=== PATIENT | female | born 1980 | race Caucasian/White ===

== ENCOUNTER 2016-03-21 18:58 | Emergency (ER) | payer MEDICAID, OTHER ==
[~2016-03-21] VITALS: Ht 162.6 cm; Wt 93.2 kg
[~2016-03-21 18:58] MED LIST: ALBU8.5H2 INHALATION; BENZ-12 PO
[2016-03-21 19:01] VITALS: BP 135/85; PULSE 84; RESP 16; O2SAT 98
--- NOTE | 2016-03-21 19:28 | ED.REPORT ---
HPI-Rash / Abscess Date of Service Mar 21, 2016 ED Provider: Haider Olivier MD Pt is a 35 y/o female with a history of asthma and migraine headaches who reports to the ED complaining of an itchy painful rash on the back of her legs onset 2 days ago . Pt reports that the rash feels burning, itching, and is very painful. The rash is only on the backs of her legs. Pt took oral Benadryl to treat symptoms with no relief. Pt had a similar rash previously which resulted from a cat allergy. Pt also c/o of a migraine headache and an ongoing cough. She describes her headache as persistent and is similar to previous migraines. Pt is currently on prednisone 20 mg twice a day for 4 days and Azithromycin for her upper respiratory infection. Patient also has not had access to Advair, which she typically takes for her asthma. Nursing Notes Stated Complaint: POSSIBLE HIVES/HEADACHE Chief Complaint: Skin Rash/Abscess Nursing Notes Reviewed: Yes ([employer], meds not reconciled) Allergies: Coded Allergies: No Known Allergies (Unverified , 03/14/16) Scheduled Albuterol HFA (Proair HFA) 8.5 Gm Hfa.aer.ad 2 PUFFS INHALATION Q4H Fluticasone/Salmeterol (Advair 100-50 Diskus) 60 Puffs/Inh Disk 1 PUFFS IH BID Ranitidine (Ranitidine) 150 Mg Capsule 150 MG PO BID Scheduled PRN Benzonatate (Tessalon Perle) 100 Mg Capsule 100 MG PO TID PRN PRN For Cough Benzonatate (Tessalon Perle) 100 Mg Capsule 100 MG PO TID PRN PRN For Cough Hydrocodone-Acetaminophen 5-325 mg (Hydrocodone-Acetaminophen 5-325 mg) 1 Each Tablet 1 TABLET PO Q4H PRN PRN For Pain Promethazine (Promethazine) 25 Mg Tablet 25 MG PO Q4H PRN PRN migraine General Time Seen by MD: 19:26 Chief Complaint Rash Hx Obtained From: Patient Arrived By: Walk-in Onset Occurred: 2 days ago Symptom Duration: Since onset Location: : Lower extremity Severity: Current: Mild Severity: Maximum: Mild Pertinent Negative: Relieved by nothing Recent Healthcare: No recent hospitalization, Recent doctor visit Past Medical History Past Medical History Notes: seen in ED 03/16/16 for migraine Past Medical History Migraines Reports: Asthma Past Surgical History none reported Family History Noncontributory Smoking History Current Every Day Smoker Social History Other Social History: Local resident Ambulatory Status Independent Review of Systems Respiratory: Reports: Non-productive cough, Denies: Shortness of breath Skin: Reports Itching, Reports Rash (back of thighs) Complete sys rev & neg: except as marked. Neurologic: Reports: Headache Physical Exam Initial Vital Signs Vital Signs (First) Date Time Temp Pulse Resp B/P Pulse Ox O2 Delivery O2 Flow Rate FiO2 03/21/16 19:01 36.6 84 16 135/85 98 Room Air Initial VS: Reviewed, Vital signs normal Head / Eyes: Atraumatic, Normocephalic, PERRL ENT: Mucous membranes moist, Conjunctiva normal, No scleral icterus Neck: Supple, Non-tender, Full range of motion Respiratory: Breath sounds normal, Clear to auscultation, No respiratory distress Cardiovascular: Regular rate & rhythm, Heart sounds normal, Intact distal pulses Extremities: Vascular intact, Neuro intact Neurologic: Alert, Oriented, Nonfocal Psychiatric: Mood/affect normal, Behavior normal, Normal thought content General/Constitutional: Awake, Alert Skin: Warm, Dry Color / Condition: Positive: Rash present Rash / Lesion Notes: erythematous raised urticarial rash on back of his thighs. no blisters, vesicles, or bulla. Rash / Lesion Location: Positive: Thigh L, Thigh R Re-Eval/Medical Decision Med Decision/Clinical Course This is a 35-year-old female presents complaining of a red, raised, itchy and burning rash in the back or legs. At times it feels like blisters, although turns out on inspection there are no vesicles or bulla. The patient had been recently treated with a course of Zithromax for respiratory infection, and she has a chronic recurrent migraine. She has no new respiratory symptoms, no angioedema, no audible bronchospasm- although she does expose to be on Advair, and needs a prescription for this, she was told her prescription was faxed in to the pharmacy is told by the pharmacy nothing was sent in. She has had no GI symptoms. She has had prior allergic reactions, and she has been taking some Benadryl to try and help with itching discomfort of this current rash per On exam she appears H's, but otherwise well. She is alert oriented and appropriate with no normal neurologic exam and no focal deficits. She has no red flags on history or exam to suggest the need for acute neuro imaging or LP. She does have a rash in the posterior thighs that is raised, and appears urticarial. It is pruritic. There are no vesicles or bulla. There is no signs of secondary cellulitis. The differential for the urticaria includes an allergic reaction Reaction to Zithromax is in the differential but is not definitive. The patient received appears steroids, Benadryl, Pepcid, and is somewhat improved. She she received IM Phenergan for the migraine. She is improved. Legs also hurt and also she did receive a prepack of hydrocodone to take at home as well. He is being discharged the dose of dexamethasone, continued Benadryl, continue a short course of a H2 elian, and I have written the requested refill for her Advair inhaler. Patient is discharged in improved condition Source of Hx: Old records Re-Evaluation/Progress : Time of Eval: 21:01 Patient Status: Condition improved Re-Evaluation/Progress Note: Patient understands and agrees with the plan to be discharged home. Discharge instructions and follow-up discussed. All questions were addressed. Return to the ED warnings given. Differential Diagnosis: Positive: Urticaria, Negative: AIDS/HIV, Abscess, Anorectal abscess, Eczema, Henoch-Schonlein purpura, Herpes zoster, Herpes zoster/simplex, Hidradenitis suppurativa, Idiopathic thromb purpura, Impetigo, MRSA, Osteomyelitis, Pediculosis (lice), Candelario mt spotted fever, Scarlet fever Counseled Regarding: Diagnosis, Need for follow-up, When/why to return to ED Discharge & Departure Impression: Primary Impression: Migraine Migraine type: unspecified Status migrainosus presence: without status migrainosus Intractability: not intractable Qualified Code: G43.909 - Migraine, unspecified, not intractable, without status migrainosus Additional Impression: Urticaria Disposition: Home Discharge Condition All VS Reviewed: Yes Condition: Stable Additional Instructions: 1. Continue the benadryl (diphenhydramine) 25mg 1-2 tabs up to every 4 hours as needed for itching/rash. 2. Take dexamethasone (empty rest of syringe into juice and drink) tomorrow. 3. Take ranitidine 150mg twice a day for 3 days to help with itching/rash. 4. For migraines you can add promethazine 25mg 1 tab up to every 4 hours. NOTE: This medicine can cause mild drowsiness. 5. Keep your appointment with your doctor Referrals: [facility] Payal Attestation Portion of this note were transcribed by Sushma Murillo and Darrell Weber. I, Dr. Olivier, personally performed the history, physcial exam, and medical decision- making: I reviewed and confirmed the accuracy for the information in the transcribed note. Signed by: payal Joel, 03/21/162199 Signed by: Payal Dick, 03/21/2016 2208 copies to: [facility] Haider Olivier MD Mar 21, 2016 19:28 DARRELL WEBER Mar 21, 2016 19:48 Sushma Murillo Mar 21, 2016 21:01
[2016-03-21] MEDS ORDERED: Dexamethasone 20 mg/2 mL Oral Solution PO ONE (19:45)
[2016-03-21] MEDS ORDERED: Promethazine 25 mg/mL Inj IM ONE (19:45)
[2016-03-21] MEDS ORDERED: PROM25TA14 PO (20:40)
[2016-03-21] MEDS ORDERED: RANI150C4 PO (20:40)
[2016-03-21] MEDS ORDERED: _HYDROcodone/APAP 5-325 mg Tablet PO PRN (21:05)
[2016-03-21] MEDS ORDERED: ADV100INH IH (21:06)
[2016-03-21] MEDS ORDERED: HYDR-4003 PO (21:06)
== END 2016-03-22 00:13 | disposition home or self-care (01) ==
LOC: SED 18:58
DX: G43.909 Migraine, unspecified, not intractable, without status migrainosus (principal); L50.9 Urticaria, unspecified; J45.909 Unspecified asthma, uncomplicated; F17.200 Nicotine dependence, unspecified, uncomplicated
CPT/HCPCS: 96372; 99284; J1200

== ENCOUNTER 2016-06-21 06:16 | Observation (INO) | payer MEDICAID, OTHER ==
[~2016-06-21] VITALS: Ht 160 cm; Wt 100.0 kg
[2016-06-21] VITALS (9 sets, daily range): BP systolic 127–181; BP diastolic 60–102; PULSE 41–75; RESP 12–36; O2SAT 93–98
[~2016-06-21 06:16] MED LIST changes: +ADV100INH IH; +HYDR-4003 PO; +PROM25TA14 PO; +RANI150C4 PO
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
[2016-06-21] MEDS ORDERED: 0.9% Sodium Chloride 1,000 ML IV ONE ×2 (06:38→09:20)
[2016-06-21] MEDS ORDERED: Ketorolac 15 mg/mL Inj IVPUSH ONE (06:40)
[2016-06-21] MEDS ORDERED: Ondansetron 2 mg/mL 2 mL Inj IVPUSH PRN ×4 (06:40→15:15)
[2016-06-21 07:02] LABS: BASOPHILS % (AUTO) 0.3 % (0-3); MONOCYTES % (AUTO) 8.7 % (4-12); Mean Corpuscular Hemoglobin 29.2 pg (27.0-35.0); Mean Corpuscular Volume 88.5 fL (81-100); NEUTROPHILS % (AUTO) 72.7 % (40-74); Platelet Count 266 bil/L (150-400)
[2016-06-21 07:27] LABS: Magnesium 1.9 mg/dL (1.6-2.6)
--- NOTE | 2016-06-21 08:01 | DRSVH ---
PROCEDURE: X-RAY CHEST ONE VIEW, PORTABLE ([id number]) INDICATIONS: dyspnea TECHNIQUE: One view of the chest was acquired. COMPARISON: 03/14/2016 FINDINGS: Surgical changes and devices: None. Lungs and pleura: No pleural effusions or pneumothorax. Lungs are clear except for slight blurring of pulmonary vessels at the right lung base, possibly atelectasis or mild infiltrate.. Mediastinum: Mediastinal contours appear normal. Heart size is normal. Bones and chest wall: No suspicious bony lesions. Overlying soft tissues appear unremarkable. IMPRESSION: Possible early pneumonitis right lower lobe for clinical correlation. Discrepant from the preliminary reading Dictated by: Josef Colon M.D. on 06/21/2016 at 7:57 Approved by: Josef Colon M.D. on 06/21/2016 at 8:00
--- NOTE | 2016-06-21 08:19 | DRSVH ---
PROCEDURE: CT ABDOMEN AND PELVIS WITHOUT CONTRAST ([id number]) INDICATIONS: RLQ pain TECHNIQUE: Noncontrast 5 mm thick sections acquired from the diaphragms to the symphysis. 5 mm coronal and sagi ttal reformats were then performed. For radiation dose reduction, the following was used: automated exposure control, adjustment of mA and/or kV according to patient size. COMPARISON: [facility], CR, XR CHEST 2VW, 03/14/2016, 13:47. [facility], CR , XR CHEST 1VW (PORTABLE), 06/21/2016, 6:39. FINDINGS: Image quality: Excellent. ABDOMEN: Lung bases: There is a trace amount of right pleural effusion. There is mild right middle lobe groun dglass infiltrate. Heart size is normal. Solid organs: Liver is normal in size. Spleen is not enlarged. A small amount of fluid is seen arou nd liver. There is mild bladder wall thickening. There are no opaque gallstones. A small amount of pe richolecystic fluid is present. Fluid is also seen in the lesser sac and narrow pancreatic head. Oliver creas is normal in contours. No adrenal nodules. Kidneys are normal in size, without hydronephrosis or nephrolithiasis. Peritoneum and bowel: Appendix is normal. Unenhanced bowel loops demonstrate normal wall thickness a nd caliber. There is a small to moderate amount of free fluid. No free air. Nodes and vessels: No retroperitoneal or mesenteric adenopathy by size criteria. Aorta and inferior vena cava are normal in caliber. Miscellaneous: No ventral hernias. There is mild body wall edema. PELVIS: Genitourinary: Bladder is contracted. Miscellaneous: No inguinal hernias or adenopathy. Bones: No suspicious bony lesions. No vertebral body compression fractures. IMPRESSION: 1. Normal appendix. There is no CT findings to explain right lower quadrant pain. 2. Gallbladder wall is mildly thickened. No radiopaque gallstones. There is a small amount of pericho lecystic fluid and fluid. Cannot rule out early acute cholecystitis. Ultrasound may be helpful for fu rther evaluation. 3. A small to moderate amount of free fluid. 4. Mild splenomegaly. 5. Trace right pleural effusion and mild groundglass infiltrate in the right middle lobe. Recommend c linical correlation for developing pneumonia. The result was discussed with Dr. Madrid in ER prior to dictation. Dictated by: Luis Manuel Zhang M.D. on 06/21/2016 at 7:59 Approved by: Luis Manuel Zhang M.D. on 06/21/2016 at 8:17
[2016-06-21] MEDS ORDERED: levoFLOXacin Inj 750 MG in IV Premix 1 EACH IV ONE (09:20)
[2016-06-21] MEDS ORDERED: metroNIDAZOLE Inj 500 MG in IV Premix 1 EACH IV ONE (09:20)
--- NOTE | 2016-06-21 09:44 | DRSVH ---
PROCEDURE: US ABDOMEN, LIMITED ([id number]) INDICATIONS: RUQ pain TECHNIQUE: Real-time focused scanning was performed of the abdomen, with image documentation. COMPARISON: None. FINDINGS: The gallbladder wall appears of edematous, thickened to up to 11 mm. There is tenderness d uring sonographic palpation but no stones are seen within the gallbladder lumen. The common bile kiran t is relatively poorly seen due to overlying bowel gas, and measures an estimated 6 mm. IMPRESSION: Gallbladder wall thickening without gallstones identified, with the gallbladder wall thic kness up to 11 mm. Tenderness during palpation directly over the gallbladder is present. No biliary distention is found. Dictated by: Timothy Ricardo M.D. on 06/21/2016 at 9:42 Approved by: Timothy Ricardo M.D. on 06/21/2016 at 9:43
[2016-06-21] MEDS ORDERED: GABA-500 PO (10:12)
[2016-06-21] MEDS ORDERED: OXCA300T2 PO (10:12)
[2016-06-21] MEDS ORDERED: UMEC1DIS INHALATION (10:12)
[2016-06-21] MEDS ORDERED: 0.9% Sodium Chloride 1,000 ML IV SCH (11:13)
[2016-06-21] MEDS ORDERED: Alum-Mag Hydrox-Simeth 30 mL Suspension PO PRN (11:15)
--- NOTE | 2016-06-21 11:17 | NUR ---
Admit nurse: Admit completed, med rec completed per pt interview. Allergies updated.
--- NOTE | 2016-06-21 11:55 | NUR ---
Admit to [facility] Pt arrived in [facility] at 1125 from ED. Pt alert and oriented. Complaining that her ID cards were not returned to her in ED. States her pain is tolerable and rates it at 6/10. PIV patent and intact. All personal possession with pt. Explained nonsmoking policy to pt and also reinforced rules about not leaving the unit. Pt does not recall the last time she had food or drink: "Maybe the day before yesterday?" (Friday). VSS. No nausea. No vomiting. Care continues.
[2016-06-21] MEDS ORDERED: HYDROmorphone 1 mg/mL Inj IVPUSH PRN ×2 (13:45→15:15)
--- NOTE | 2016-06-21 14:07 | NUR ---
Pt off unit Pt to O.R. at 1405 hrs. PIV saline locked.
[2016-06-21] MEDS ORDERED: Lactated Ringer's 1,000 ML IV ONE ×2 (14:30→15:11)
--- NOTE | 2016-06-21 14:40 | HP ---
[address] [address] HISTORY AND PHYSICAL PATIENT: MILAN ALANIZ : 1980 MR#: [id number] ADMIT: 06/21/2016 JOB ID: [id number] CORRECTED REPORT: DATE OF SERVICE: 06/21/2016 PRESENT ILLNESS: The patient is seen in consultation at the request of Dr. Donny Hogan of the emergency department regarding further evaluation and management of abdominal pain. HISTORY OF PRESENT ILLNESS: The patient is a 35-year-old, obese woman who presented to the emergency department today with eight or nine days of right flank and right upper quadrant abdominal pain. She tells me that she has been experiencing episodic right upper quadrant abdominal pain for about five years now. She had previously been told that her gallbladder was the culprit. About eight days ago, she started developing recurrent right upper quadrant abdominal pain. She associates this with particularly spicy foods but sometimes fatty foods. Yesterday, the pain became quite intense prompting her to come to the emergency department today. She complains of nausea and has vomited. She has also been feeling intermittently cold and hot. In the emergency department, she was found to have leukocytosis of 11.3. Her LFTs were relatively unremarkable. A CT scan of the abdomen and pelvis was obtained without contrast and showed mild thickening of the gallbladder wall with some pericholecystic fluid. There was also some free fluid in the belly as well as mild splenomegaly and trace right pleural effusion. She went on to get an ultrasound which I reviewed. This shows some gallbladder wall thickening up to 11 mm. However, no stones were identified. She did have a positive sonographic Toscano sign. The patient complains of ongoing pain. PAST MEDICAL HISTORY: 1. Bipolar. 2. Agoraphobia. 3. PTSD. 4. Anxiety. 5. Sciatica. PAST SURGICAL HISTORY: 1. Tonsils and adenoids. 2. Pilonidal excision. 3. Ear tubes. MEDICATIONS: Current medications reviewed. ALLERGIES: Reviewed. FAMILY HISTORY: Family history is significant for multiple family members who have had their gallbladder removed. REVIEW OF SYSTEMS: Full review of systems is obtained as per the HPI, otherwise negative. SOCIAL HISTORY: She lives in [place]. she is attending college currently. She smokes about one pack of cigarettes per week. She denies any alcohol or illicit drugs. PHYSICAL EXAMINATION: She has been afebrile since admission. She has most recently had a temperature of 36.7 degrees, heart rate 41 beats per minute. Blood pressure 133/67, satting 95% on room air with a respiratory rate of 20 breaths per minute. In general, she appears mildly uncomfortable in no acute distress. Cardiovascular: She has a regular rate and rhythm. No appreciated murmurs, rubs, gallops. Pulmonary: Lungs are clear to auscultation. Cardiovascular: She has no carotid bruit. Neck: She has no thyromegaly. Lymph: She has no cervical lymphadenopathy. GI: Her abdomen is obese. She has exquisite tenderness in the right upper quadrant. Extremities: She has trace pitting edema. Skin is warm without rash. Neuro is grossly intact. Psych is pleasant and appropriate. LABORATORIES: Her white blood cell count this morning was 11.3, hematocrit was 36. Platelet count was 266. Her creatinine was 0.67. Lactic acid was 0.9. Bilirubin was 0.3. Lipase was 44. IMAGING: CT scan and ultrasound are personally reviewed and as per the HPI. ASSESSMENT AND PLAN: This is a 35-year-old female with right flank and upper quadrant abdominal pain with sonographic evidence of possible acalculous cholecystitis. I discussed the diagnosis of cholecystitis with the patient. It is quite rare to see acalculous cholecystitis in a nonhospitalized or institutionalized patient. However, it is hard to argue with her history as well as the elevated white blood cell count and the sonographic findings of a thickened wall and tenderness of the gallbladder. I discussed the possibility that removing the gallbladder may not resolve her pain. However, I do not think it is unreasonable to proceed with cholecystectomy. The patient would like to proceed and this will be done as soon as the operating room is available. Corrected by SUNNY 06/26/16 at 9:00am Report type.
[2016-06-21] MEDS ORDERED: Bupivacaine-MPF 0.25%/EPI 30 mL Inj INJ ONE (15:05)
[2016-06-21] MEDS ORDERED: Lactated Ringer's 1,000 ML IV SCH (15:11)
[2016-06-21] MEDS ORDERED: Lactated Ringer's 500 ML IV PRN (15:11)
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
[2016-06-21] MEDS ORDERED: Atropine 0.4 mg/mL Inj IVPUSH PRN (15:15)
[2016-06-21] MEDS ORDERED: MetoCLOpramide 5 mg/mL 2 mL Inj IVPUSH PRN (15:15)
[2016-06-21] MEDS ORDERED: fentaNYL-PF 50 mCg/mL 2 mL Inj IVPUSH PRN (15:15)
[2016-06-21] MEDS ORDERED: Labetalol 5 mg/mL 4 mL Inj IV PRN (15:15)
[2016-06-21] MEDS ORDERED: Phenylephrine 10,000 mCg/mL Inj IVPUSH PRN (15:15)
[2016-06-21] MEDS ORDERED: EPHEDrine Sulfate 50 mg/mL Inj IVPUSH PRN (15:15)
[2016-06-21] MEDS ORDERED: Dexamethasone 4 mg/mL Inj IVPUSH PRN (15:15)
[2016-06-21] MEDS ORDERED: Albuterol-Ipratropium 3 mL Inhalation Solution NEB PRN (15:15)
--- NOTE | 2016-06-21 16:10 | PCM.DISURG ---
Surgical Discharge Instruction Date of Service Jun 21, 2016 Dates of Hospitalization Date of Hospital Admission Jun 21, 2016 at 10:12 Providers Admitting Physician: Adan Gutierrez MD [facility]ending [facility]: Adan Gutierrez MD Discharge Diagnosis Discharge Diagnosis Cholecystitis Diet Discharge Diet: No restrictions Activity Discharge Activity-General: Be up and about, Balance rest and activity, No driving while taking narcotic Dressing and Incisional Care Dressing Care: Allow Steri Stripes to fall off, Remove outer dressing after 24 hrs Hygiene: May shower, NO bathtub, hot tub or whirlpool Follow Up Plan Follow Up Plan follow up with surgical PA in 2-4 weeks Call your provider for: Fever, Chills, Increasing abdominal pain, Nausea, Vomiting Adan Gutierrez MD Jun 21, 2016 16:10
--- NOTE | 2016-06-21 16:21 | PCM.ANEP2 ---
Post Anesthesia Evaluation ASA/CMS Post Anesthesia Date of Service: Jun 21, 2016 VS in Patient's Normal Range?: Yes Resp Stable; Airway Patent?: Yes CV Function & Hydration Stable: Yes Mental Status Recovered?: Yes Pain control Satisfactory?: Yes N/V Control Satisfactory?: Yes Holden Granados MD Jun 21, 2016 16:21
--- NOTE | 2016-06-21 16:21 | PCM.ANEP1 ---
Post Anesthesia Phase 1 PACU Phase 1 Assessment Date of Service: Jun 21, 2016 Vital Signs Vital Signs Date Time Temp Pulse Resp B/P Pulse Ox O2 Delivery O2 Flow Rate FiO2 06/21/16 11:34 36.7 41 20 133/67 95 Room Air Anesthetic Administered: GA Level of Alertness: Awake, talking WONG's with Equal Strength: Yes Pain: No Nausea or Vomiting: No Oxygen Delivery: Simple Mask Lungs: Normal Air Movement Holden Granados MD Jun 21, 2016 16:21
--- NOTE | 2016-06-21 16:55 | OP ---
[address] [address] OPERATIVE REPORT PATIENT: MILAN ALANIZ : 1980 MR#: [id number] ADMIT: 06/21/2016 JOB ID: [id number] DATE OF SURGERY: 06/21/2016 ANESTHESIA: General. PREOPERATIVE DIAGNOSIS(ES): Acute acalculous cholecystitis. POSTOPERATIVE DIAGNOSIS(ES): Acute acalculous cholecystitis. OPERATIVE PROCEDURE: Laparoscopic cholecystectomy. SURGEON: Adan Gutierrez MD. LASER/ELECTRO OPTICS TECHNICIAN: Nirav Leger PA-C. (The assistant portfolio manager was required for the safe and timely completion of the case). COMPLICATIONS: None. ESTIMATED BLOOD LOSS: 20 mL. CONDITION: Satisfactory. SPECIMEN: Gallbladder. FINDINGS: Clear simple fluid was encountered in the abdomen of unclear etiology. The gallbladder itself was distended and edematous. INDICATIONS/SIGNIFICANT HISTORY: The patient is a 35-year-old female who has been experiencing episodic right upper quadrant and right flank pain for a number of years. She had a particularly bad episode that began several weeks ago and acutely worsened yesterday prompting a visit to the emergency department today. She was found to have a mild leukocytosis as well as sonographic findings suggestive of cholecystitis including wall thickening and positive sonographic Toscano sign. However, no stones were identified. I talked with her and explained that it is unusual to see a presentation of acute acalculous cholecystitis in a patient such as herself, but was willing to perform a cholecystectomy. The patient agreed to move forward. OPERATIVE TECHNIQUE: The patient was taken into the operating room and placed in supine position. General anesthesia was administered. The abdomen was prepped and draped in a standard fashion. A procedural pause was performed. Entry was gained to the abdomen through a supraumbilical incision using a 10 mm Optiview trocar. Pneumoperitoneum was achieved without complication. Local anesthetic was injected, followed by insertion of 5 mm ports in the subxiphoid as well as two in the right upper quadrant. An attempt was made to grasp the gallbladder but it was distended and firm. It was therefore drained using 14-gauge laparoscopic aspiration needle. The gallbladder was then grasped and retracted cephalad. The liver was quite fatty limiting mobility. Dissection was begun to identify the cystic structures. I was able to get the base of the gallbladder off the cystic plate. However, some bleeding was encountered which was controlled with electrocautery. Eventually, I got all but the duct freed up. I did not identify a cystic artery and presumably took it while I was dissecting the gallbladder off the cystic plate. Once the gallbladder was pediclized off the cystic duct, three clips placed on this and it was taken sharply. The remainder of the dissection of the gallbladder off the cystic plate was then completed and the gallbladder placed in an EndoCatch bag. The epigastric port had caused a small laceration in the liver. This was inspected and found to be completely hemostatic. The gallbladder was removed through the umbilical port site, and then the surgical bed was copiously irrigated, and found to be hemostatic. I did not have to dilate the umbilical port site fascia to get the gallbladder out. I was unable to place a finger through the hole and therefore elected not to close it. The lateral ports were then removed under direct visualization followed by release of pneumoperitoneum and removal of the remaining port. Skin was closed using 4-0 Monocryl. FINDINGS: Interestingly, adjacent to the duodenum, in the area of the olive hepatis, there was what appeared to be a lot of edema in the fatty tissue of unclear etiology.
[2016-06-21] MEDS ORDERED: CLOT60CR TP (17:51)
[2016-06-21] MEDS ORDERED: RANI150T11 PO (18:10)
[2016-06-21] MEDS ORDERED: PROM25TA14 PO (18:10)
[2016-06-21] MEDS ORDERED: ETOD200C4 PO (18:10)
[2016-06-21] MEDS: oxyCODONE-Acetamin 5-325 mg Tablet PO PRN ×3 (18:37→22:35)
[2016-06-21] MEDS: Dextrose 5% Lactated Ringer's 1,000 ML IV SCH (18:37)
[2016-06-21] MEDS ORDERED: Albuterol 2.5 mg/3 mL Inhalation Solution NEB PRN (20:00)
[2016-06-21] MEDS ORDERED: OXcarbazepine 300 mg Tablet PO SCH (20:30)
[2016-06-22 00:30] VITALS: BP 151/76; PULSE 41; RESP 19; O2SAT 95
--- NOTE | 2016-06-22 01:50 | NUR ---
Nutritional status Emily. po fluids and food qs w/o c/o nausea.IV changed to SL.VSS yet hypertensive at start of shift.Pt. was very upset at that time r/t missing ID card.Mother at bedside and helpful with pts labile emotions.Calmed down after .5mg IV dilaudid adm.PO analgesia has been eff. for pain control since then.Abd. soft with BT.Passing flatus.Dressings CDI.Sleeping soundly at this time and resting comfortably.Will cont. to monitor.
[2016-06-22] MEDS: Dextrose 5% Lactated Ringer's 1,000 ML IV SCH (03:59)
--- NOTE | 2016-06-22 05:48 | NUR ---
Agitation Pt.ref. offered pain meds,states they are making her more anxious.Also ref. am labs and removed her IV.Mom at bedside and helpful.Will cont. to monitor.Home soon.
[2016-06-22] MEDS ORDERED: HYDR-4003 PO (07:43)
[2016-06-22] MEDS ORDERED: Glycopyrrolate 0.2 MG/ML 1mL Inj ONE (08:07)
[2016-06-22] MEDS ORDERED: HYDROmorphone 2 mg/mL Inj ONE (08:07)
[2016-06-22] MEDS ORDERED: fentaNYL-PF 50 mCg/mL 2 mL Inj ONE (08:07)
[2016-06-22] MEDS ORDERED: Propofol 10,000 mCg/mL 20 mL Inj ONE (08:07)
[2016-06-22] MEDS ORDERED: Neostigmine 1 mg/mL 10 mL Inj ONE (08:07)
[2016-06-22] MEDS ORDERED: Lidocaine PF 1% 30 mL Inj ONE (08:07)
[2016-06-22] MEDS ORDERED: Ondansetron 2 mg/mL 2 mL Inj ONE (08:07)
[2016-06-22] MEDS ORDERED: Dexamethasone 4 mg/mL Inj ONE (08:07)
--- NOTE | 2016-06-22 09:19 | NUR ---
Discharge discharge instructions reviewed with patient and her mother. medications reviewed and follow-up information given. I recommended calling surgery office on Mon/Tues to set up appointment. I offered to assist patient to car. patient declined, stating, "i can walk out myself." patient discharged at 0805hrs.
--- NOTE | 2016-06-24 09:28 | PCM.DC.SUR ---
Discharge Summary Date of Service: Date of Hospital Admission: Jun 21, 2016 at 10:12 Date of Operation(s): 06/21/2016 Date of Discharge: 06/22/2016 Diagnosis at Time of Discharge Primary diagnosis: Acute acalculous cholecystitis Other chronic conditions: 1. Bipolar disorder. 2. Agoraphobia. 3. PTSD. 4. Anxiety. 5. Sciatica. 6. Daily cigarette smoker Problems: Operation Laparoscopic cholecystectomy Brief History and Physical: The patient is a 35-year-old, obese woman who presented to the emergency department with eight or nine days of right flank and right upper quadrant abdominal pain. She stated that she had been experiencing episodic right upper quadrant abdominal pain for about five years. She had previously been told that her gallbladder was the culprit. About eight days Prior to admission, she started developing recurrent right upper quadrant abdominal pain. She associated that with particularly spicy foods but sometimes fatty foods. The day prior to admission, the pain became quite intense prompting her to come to the emergency department. She complaind of nausea and has vomited. She had also been feeling intermittently cold and hot. In the emergency department, she was found to have leukocytosis of 11.3. Her LFTs were relatively unremarkable. A CT scan of the abdomen and pelvis was obtained without contrast and showed mild thickening of the gallbladder wall with some pericholecystic fluid. There was also some free fluid in the belly as well as mild splenomegaly and trace right pleural effusion. She went on to get an ultrasound. This showed some gallbladder wall thickening up to 11 mm. However, no stones were identified. She did have a positive sonographic Toscano sign. The patient complaind of ongoing pain on admission. Consultants: None Hospital Course: The patient was admitted and underwent the above-mentioned operation without complication. She was stable for discharge the following day. Pathology: Pending Disposition: The patient was discharged to home on her first postsurgical day. Follow-up Plan: She will follow-up in the office with the surgical PA in 2-4 weeks. Albuterol HFA (Proair HFA) 8.5 Gm Hfa.aer.ad 2 PUFFS INHALATION Q4H PRN PRN For Shortness of Breath (Reported) Clotrimazole (Athlete's Foot) 1 % Cream..g. 1 APPLIC TP BID (Reported) Etodolac (Etodolac) 200 Mg Capsule 400 MG PO BIDWM PRN PRN For Pain (Reported) Gabapentin (Gabapentin) 100 Mg Capsule 100-300 MG PO HS (Reported) Hydrocodone-Acetaminophen 5-325 mg (Hydrocodone-Acetaminophen 5-325 mg) 1 Each Tablet 1 TABLET PO Q4H PRN PRN For Pain Oxcarbazepine (Oxcarbazepine) 300 Mg Tablet 300 MG PO TID (Reported) Promethazine (Promethazine) 25 Mg Tablet 25 MG PO Q4H PRN PRN migraine Promethazine (Promethazine) 25 Mg Tablet 25 MG PO TID PRN PRN For Nausea/ Vomiting (Reported) Ranitidine (Zantac) 150 Mg Tablet 150 MG PO BIDWM (Reported) Umeclidinium Brm/Vilanterol Tr (Anoro Ellipta 62.5-25 Mcg INH) 1 Each Disk.w.dev 1 PUFF INHALATION QAM (Reported) copies to: [facility] Raymundo Acosta PA-C Jun 24, 2016 09:28
--- NOTE | 2016-06-25 11:07 | PATH ---
SURGICAL PATHOLOGY Attending Physician:Adan Gutierrez MD CASE STATUS: Signed Out PATIENT NAME: MILAN ALANIZ PID: [id number] : 1980 DATE COLLECTED:06/21/2016 00:00 SPECIMEN: Gallbladder CLINICAL HISTORY: CALCULOUS CHOLECYSTITIS 1). GALLBLADDER FINAL DIAGNOSIS: Gallbladder: Acalculous chronic cholecystitis with focal cholesterolosis. ICD10: K81.1 GROSS DESCRIPTION: The specimen is received in one formalin filled container labeled with the patient's name, sublabeled "gallbladder" and consists of an intact 7.5 x 3.5 x 1.0 CM gallbladder. The serosa is smooth. The wall is 0.2-0.6 CM in thickness. The mucosa is a pink to dark lang in color. The lumen contains a dark red-brown mucoid to friable material and no calculus are noted. 5 maintenance representative sections are submitted in one cassette. 06/22/2016 [facility] ICD-9 CODES: CPT CODES: 1: 58192 Electronically Signed Out Williams Georges MD [facility] [address], [place] [address] Technical component performed at [facility], [facility] [address], [place], [address]
== END 2016-06-22 08:08 | disposition home or self-care (01) ==
LOC: SED 06:16 → OSC 10:12
PROVIDERS: ADMIT General Practice; ATTEND General Practice
DX: K81.1 Chronic cholecystitis (principal); F31.89 Other bipolar disorder; F40.00 Agoraphobia, unspecified; F43.10 Post-traumatic stress disorder, unspecified; F17.210 Nicotine dependence, cigarettes, uncomplicated; F41.9 Anxiety disorder, unspecified; M54.30 Sciatica, unspecified side; J45.909 Unspecified asthma, uncomplicated
CPT/HCPCS: 36415; 47562; 71010; 74176; 76705; 80053; 81025; 83605; 83690; 83735; 85025; 88304; 94799; 96365; 96366; 96368; 99285; G0378; J1100; J1170; J1956; J2250; J2405; J2710; J3010; J3490; J7030; J7120

== ENCOUNTER 2016-06-23 20:26 | Emergency (ER) | payer OTHER ==
[~2016-06-23] VITALS: Ht 160 cm; Wt 100.0 kg
[~2016-06-23 20:26] MED LIST changes: -ADV100INH IH; -BENZ-12 PO; +CLOT60CR TP; +ETOD200C4 PO; +GABA-500 PO; +OXCA300T2 PO; -RANI150C4 PO; +RANI150T11 PO; +UMEC1DIS INHALATION
[2016-06-23 20:33] VITALS: BP 135/83; PULSE 60; RESP 14; O2SAT 97
== END 2016-06-23 21:00 | disposition left against medical advice (07) ==
LOC: SED 20:26
DX: Z53.21 Procedure and treatment not carried out due to patient leaving prior to being seen by health care provider (principal)

== ENCOUNTER 2016-09-11 00:09 | Emergency (ER) | payer OTHER ==
[~2016-09-11] VITALS: Ht 167.6 cm; Wt 118.2 kg
[2016-09-11 00:15] VITALS: BP 148/91; PULSE 79; RESP 23; O2SAT 100
--- NOTE | 2016-09-11 00:26 | ED.REPORT ---
HPI-Psychiatric Illness Date of Service Sep 11, 2016 ED Provider: Dr. Garcia 36 y/o female with a hx of migraines, bipolar 1 and asthma presents to the ED complaining of suicidal ideation, onset today. The pt states she stopped taking her medications a week ago because she states "they are not working". She also states "I feel very hated right now. I don't know what's going on today". When informed she will need to meet with a social media project manager tomorrow morning, she states she wants to go home and sleep. She confirms her safety and agrees to return tomorrow. Nursing Notes Stated Complaint: MENTAL ISSUES Chief Complaint: Psychiatric Complaint Nursing Notes Reviewed: Yes Allergies: Coded Allergies: Fish Containing Products (Verified Allergy, Severe, breathing difficulties , 06/21/16) aspirin (Verified Allergy, Severe, breathing difficulties, vomiting, ) Scheduled Clotrimazole (Athlete's Foot) 1 % Cream..g. 1 APPLIC TP BID Gabapentin (Gabapentin) 100 Mg Capsule 100-300 MG PO HS Oxcarbazepine (Oxcarbazepine) 300 Mg Tablet 300 MG PO TID Ranitidine (Zantac) 150 Mg Tablet 150 MG PO BIDWM Umeclidinium Brm/Vilanterol Tr (Anoro Ellipta 62.5-25 Mcg INH) 1 Each Disk.w.dev 1 PUFF INHALATION QAM Scheduled PRN Albuterol HFA (Proair HFA) 8.5 Gm Hfa.aer.ad 2 PUFFS INHALATION Q4H PRN PRN For Shortness of Breath Etodolac (Etodolac) 200 Mg Capsule 400 MG PO BIDWM PRN PRN For Pain Hydrocodone-Acetaminophen 5-325 mg (Hydrocodone-Acetaminophen 5-325 mg) 1 Each Tablet 1 TABLET PO Q4H PRN PRN For Pain Promethazine (Promethazine) 25 Mg Tablet 25 MG PO Q4H PRN PRN migraine Promethazine (Promethazine) 25 Mg Tablet 25 MG PO TID PRN PRN For Nausea/ Vomiting General Time Seen by MD: 00:25 Chief Complaint Suicidal ideation Hx Obtained From: Patient Arrived By: Walk-in Onset Occurred: 9 - 12 hours ago Symptom Duration: Since onset Severity: Current: No pain currently Severity: Maximum: No pain Recent Healthcare: No recent doctor visit Similar Sx Previous: Yes Risk-Psychiatric Illness Suicide Risk Stratification Suicide Risk Factors - Adult: : Previous attempt RF Statements: Risk factors reviewed Past Medical History Past Medical History Notes: seen in ED 03/16/16 for migraine Past Medical History Migraines Bipolar 1 Reports: Asthma Past Surgical History none reported Family History Noncontributory Smoking History Current Every Day Smoker Social History Other Social History: Local resident Ambulatory Status Independent Review of Systems Psychiatric: Reports: Anxiety, Suicidal ideation Complete sys rev & neg: except as marked. Physical Exam Initial Vital Signs Vital Signs (First) Date Time Temp Pulse Resp B/P Pulse Ox O2 Delivery O2 Flow Rate FiO2 09/11/16 00:15 36.8 79 23 148/91 100 Room Air Initial VS: Reviewed Head / Eyes: Atraumatic, Normocephalic Neck: Supple, Non-tender, Full range of motion Respiratory: Breath sounds normal, Clear to auscultation, No respiratory distress Cardiovascular: Regular rate & rhythm, Heart sounds normal, Intact distal pulses Extremities: Vascular intact, Neuro intact, No swelling, No tenderness Skin: Warm, Dry, No cyanosis General/Constitutional: Awake, Alert, Cooperative Distress / Hydration: Positive: Distress moderate Behavior: Positive: Tearful Appearance / Presentation: Positive: Obese Neurologic: Oriented X3, Speech NL, No motor deficits, No sensory deficits Psychiatric: Not suicidal (at the ED), Not homicidal, No hallucinations Re-Eval/Medical Decision Med Decision/Clinical Course 36-year-old female with bipolar illness, medical noncompliance, and vague suicidality, presents anxious and tearful, but unwilling to remain overnight. She is willing to contract for safety and appears to be sincere desire to return here for social work evaluation in the morning. No indication for detaining her against her will to this point, and with her contract for safety, she is discharged in stable condition Re-Evaluation/Progress : Time of Eval: 00:35 )( Re-Eval Psychiatric: No danger to self, No danger to others Re-Evaluation/Progress Note: Discussed diagnosis and plan to discharge so she can return tomorrow to meet with a social media project manager. Pt understands and agrees with the plan. F/U instructions and RTER warning given. All questions addressed. Counseled Regarding: Diagnosis, Need for follow-up, When/why to return to ED Discharge & Departure Impression: Primary Impression: Depression Depression Type: unspecified Qualified Code: F32.9 - Major depressive disorder, single episode, unspecified Additional Impressions: Bipolar mood disorder Active/Remission status: currently active Current bipolar episode type: depressed Current episode severity: moderate Qualified Code: F31.32 - Bipolar disorder, current episode depressed, moderate Acute situational disturbance )( Condition at Discharge: No danger to self, No danger to others Disposition: Home Discharge Condition All VS Reviewed: Yes Condition: Stable Patient Instructions: Bipolar Disorder (ED), Depression (ED) Additional Instructions: You have agreed to remain safe tonight. Return tomorrow for evaluation by social service after 9 AM. Return here promptly if you are feeling unsafe and unable to honor your commitment to remain safe. Follow-up with your doctor and your counselor. Referrals: [facility] (PCP) Scribe Attestation Portions of this note were transcribed by Carolina Ott. I, , personally performed the history, physical exam and medical decision- making;I reviewed and confirmed the accuracy of the information in the transcribed note. Signed by An Camargo. 09/11/16 00:46 copies to: [facility] Holden Garcia MD Sep 11, 2016 00:26 Carolina Ott Sep 11, 2016 00:32
[2016-09-11] MEDS ORDERED: LORazepam 2 mg Tablet PO ONE (00:35)
[2016-09-11 02:41] VITALS: BP 136/84; PULSE 84; RESP 24; O2SAT 100
== END 2016-09-11 02:40 | disposition home or self-care (01) ==
LOC: SED 00:09
DX: F32.9 Major depressive disorder, single episode, unspecified (principal); F31.32 Bipolar disorder, current episode depressed, moderate; F43.0 Acute stress reaction; J45.909 Unspecified asthma, uncomplicated; F17.200 Nicotine dependence, unspecified, uncomplicated; Z88.6 Allergy status to analgesic agent; Z91.013 Allergy to seafood

== ENCOUNTER 2016-10-06 12:01 | Emergency (ER) | payer OTHER ==
[~2016-10-06] VITALS: Ht 160 cm; Wt 106.8 kg
[2016-10-06 12:01] VITALS: BP 162/107; PULSE 65; RESP 21; O2SAT 98
[2016-10-06] MEDS ORDERED: OLANZapine Zydis ODT 5 mg Tablet PO ONE (13:00)
--- NOTE | 2016-10-06 13:08 | ED.REPORT ---
HPI-General Illness Date of Service Oct 06, 2016 ED Provider: Taisha Ponce MD Patient is a 36 year old female with a hx of Asthma, HTN, endometriosis, depression, bipolar, substance abuse, and previous suicide attempts who presents to the ED s/p calling police and telling them she felt suicidal. She reports that she has had increasing troubles for the past several years due to "a lot of trauma." She reports insomnia for the past several weeks but she slept well last night. She also reports hallucinations for the past few weeks. When asked to explain her symptoms she states "even though he really wasn't here he saved me. It was Ramo, my ex. I never would have this asshole. I want a divorce." She was seen about a month ago for these hallucinations. When asked about her suicidal ideation she states, "it's not like i really think about killing myself its just that when the depression comes it hurts so much and I just don't wanna hurt no more." She does not have a plan. She denies homicidal ideations, recent illness, or any other symptoms. She reports she is supposed to be on Trileptal but has been off of it since June. When asked why she states, "don't they understand I can't sleep all the time. I need to get a job and go to school". She has not been taking an antidepressant. Her last period was last week. Her Psychiatrist is Brandie at [facility]. She has an appointment in 5 days. Nursing Notes Stated Complaint: PSYCHIATRIC Chief Complaint: Psychiatric Complaint Nursing Notes Reviewed: Yes Allergies: Coded Allergies: Fish Containing Products (Verified Allergy, Severe, breathing difficulties , 10/06/16) aspirin (Verified Allergy, Severe, breathing difficulties, vomiting, ) Scheduled Clotrimazole (Athlete's Foot) 1 % Cream..g. 1 APPLIC TP BID Gabapentin (Gabapentin) 100 Mg Capsule 100-300 MG PO HS Olanzapine (Zyprexa) 20 Mg Tablet 20 MG PO HS Oxcarbazepine (Oxcarbazepine) 300 Mg Tablet 300 MG PO TID Ranitidine (Zantac) 150 Mg Tablet 150 MG PO BIDWM Umeclidinium Brm/Vilanterol Tr (Anoro Ellipta 62.5-25 Mcg INH) 1 Each Disk.w.dev 1 PUFF INHALATION QAM Scheduled PRN Albuterol HFA (Proair HFA) 8.5 Gm Hfa.aer.ad 2 PUFFS INHALATION Q4H PRN PRN For Shortness of Breath Etodolac (Etodolac) 200 Mg Capsule 400 MG PO BIDWM PRN PRN For Pain Hydrocodone-Acetaminophen 5-325 mg (Hydrocodone-Acetaminophen 5-325 mg) 1 Each Tablet 1 TABLET PO Q4H PRN PRN For Pain Promethazine (Promethazine) 25 Mg Tablet 25 MG PO Q4H PRN PRN migraine Promethazine (Promethazine) 25 Mg Tablet 25 MG PO TID PRN PRN For Nausea/ Vomiting General Time Seen by MD: 12:43 Chief Complaint Other (suicidal) Hx Obtained From: Patient, Police Arrived By: Police Sudden in Onset?: No Onset Occurred: More than a week ago... (>6 months) Recent Healthcare: Recent doctor visit Similar Sx Previous: Yes Past Medical History Past Medical History Notes: seen in ED 03/16/16 for migraine Past Medical History Migraines agoraphobia Bipolar 1 HTN GERD endometriosis Depression Previous suicide attempt pulmonary cysts Reports: Asthma Past Surgical History none reported Family History Noncontributory Smoking History Current Every Day Smoker Social History "spice" use Drug Use: In recovery, Meth Other Social History: Local resident Ambulatory Status Independent Review of Systems Full Review of Systems Constitutional: Denies: Fever GI: Denies: Abdominal pain, Nausea, Vomiting Psychiatric: Reports: Anxiety, Depression, Hallucinations, auditory, Hallucinations, visual, Insomnia, Suicidal ideation, Denies: Homicidal ideation Complete sys rev & neg: except as marked. Physical Exam Vital Signs Vital Signs Date Time Temp Pulse Resp B/P Pulse Ox O2 Delivery O2 Flow Rate FiO2 10/06/16 18:32 36.9 58 16 148/103 98 Room Air 10/06/16 12:01 36.6 65 21 162/107 98 Room Air Initial VS: Reviewed, Vital signs abnormal Head / Eyes: Atraumatic, Normocephalic, PERRL Neck: Supple, Non-tender, Full range of motion Respiratory: Breath sounds normal, Clear to auscultation, No respiratory distress Cardiovascular: Regular rate & rhythm, Heart sounds normal, Intact distal pulses Abdomen / GI: Soft, Non-tender, No guarding, No rebound, No distention Skin: Warm, Dry, No cyanosis General/Constitutional: Awake, Alert No signs of self destruction ENT: Atraumatic, Airway patent Mouth: Positive: Mucous membranes dry Abnormal Mood/Affect: Positive: Pressured speech Pulling out large clumps of her hair Terrified responding to internal and external stimuli Climbing out a bed during the interview Can be redirected, once then is able to re-focus For the last month, admits to both auditory and visual hallucinations Not sleeping Tangential Interpretation & Diagnostics Lab Results Interpretation Result Diagram: 10/06/16 1313 10/06/16 1313 Test 10/06/16 13:13 10/06/16 15:00 White Blood Count 14.0th/mm3 (3.8-10.1) Red Blood Count 5.33mil/mm3 (3.90-5.20) Hemoglobin 15.3g/dL (12.0-15.6) Hematocrit 43.8% (35.0-46.0) Mean Corpuscular Volume 82.2fL (81-100) Mean Corpuscular Hemoglobin 28.7pg (27.0-35.0) Mean Corpuscular Hemoglobin Concent 34.9% (32.0-37.0) Red Cell Distribution Width 13.8% (12.3-15.4) Platelet Count 290bil/L (150-400) Neutrophils (%) (Auto) 76.1% (40-74) Lymphocytes (%) (Auto) 14.9% (14-46) Monocytes (%) (Auto) 8.1% (4-12) Eosinophils (%) (Auto) 0.4% (0-5) Basophils (%) (Auto) 0.2% (0-3) Sodium Level 139mEq/L (134-144) Potassium Level 3.2mEq/L (3.5-5.2) Chloride Level 102mEq/L (97-108) Carbon Dioxide Level 17mmol/L (18-29) Blood Urea Nitrogen 10mg/dL (6-20) Creatinine 0.70mg/dL (0.57-1.00) Estimat Glomerular Filtration Rate 134mL/min (>59) Glucose Level 100mg/dL (60-99) Calcium Level 8.9mg/dL (8.5-10.1) Total Bilirubin 0.8mg/dL (0.0-1.2) Aspartate Amino Transf (AST/SGOT) 29U/L (0-50) Alanine Aminotransferase (ALT/SGPT) 35U/L (0-32) Alkaline Phosphatase 87U/L (25-150) Total Protein 7.6g/dL (6.4-8.4) Albumin 4.3g/dL (3.4-5.0) Thyroid Stimulating Hormone (TSH) 0.734uIU/mL (0.450-4.500) Hold Keller Top Tube Received (Received) Urine Color Dark yellow (YELLOW) Urine Appearance Cloudy (CLEAR,HAZY) Urine pH 5.5 (5.0-8.0) Urine Specific [place] 1.030 (1.003-1.035) Urine Protein 100mg/dL (NEG,TRACE) Urine Glucose (UA) Negativemg/dL (NEGATIVE) Urine Ketones 80mg/dL (NEGATIVE) Urine Occult Blood Large (NEGATIVE) Urine Nitrite Negative (NEGATIVE) Urine Bilirubin Negative (NEGATIVE) Urine Urobilinogen Normalmg/dL (NORMAL) Urine Leukocyte Esterase Small (NEGATIVE) Urine RBC 3-10/hpf (0-2) Urine WBC 6-10/hpf (0-5) Urine Epithelial Cells Moderate/hpf (NONE-MOD) Urine Crystals None seen (NONE SEEN) Urine Bacteria Moderate/hpf (NONE-FEW) Urine Hyaline Casts None/lpf (NONE) Urine Granular Casts None seen (NONE SEEN) Urine Waxy Casts None seen (NONE SEEN) Urine Red Blood Cell Casts None seen (NONE SEEN) Urine White Blood Cell Casts None seen (NONE SEEN) Urine Mucus Present (None Seen) Urine Trichomonas None seen (NONE SEEN) Urine Yeast None (NONE SEEN) Urinalysis Comment None Urine Culture Reflexed Indicated Lab Results Interpretation: Urine Tox: Negative Re-Eval/Medical Decision Med Decision/Clinical Course 36-year-old woman presents with significant histrionic acting out type behavior severe anxiety close to a panic attack. After Zyprexa dramatically improved. Denies any visual or auditory hallucinations for the delinquency prevention social worker before the CDP. Detained, or lose all of her social work supervisor housing and financial compliance examiner for college. On reevaluation significantly improved after the Zyprexa she is willing to continue this prescription for such as written. Source of Hx: Old records Time of Eval: 17:46 Re-Evaluation/Progress Note: After recieved Zyprexa she is not alert, focused and appropriate. She feels that she is ready to be discharged. If she were detained, she would lose her housing and financial compliance examiner. All questions are addressed. Consultation : Call Returned at: 17:46 Note: Spoke with [facility], who clear her for discharge. Counseled Regarding: Diagnosis, Lab results, Need for follow-up, When/why to return to ED Discharge & Departure Primary Impression: Anxiety Additional Impressions: UTI (urinary tract infection) Hypokalemia Disposition: Home Discharge Condition All VS Reviewed: Yes Condition: Stable Patient Instructions: Anxiety (ED) Additional Instructions: Follow-up with your Psychiatric provider this week. Take the Zyprexa as prescribed. Return to the emergency department with any thoughts of harming yourself or others, or if you feel that you are having a physiatric or medical emergency . Referrals: [facility] (PCP) An Attestation Portions of this note were transcribed by Marilou Elias. I, Dr. Ponce personally performed the history, physical exam and medical decision-making; I reviewed and confirmed the accuracy of the information in the transcribed note. Signed by: An Soto, 10/06/2016 [id number] copies to: [facility] Taisha Ponce MD Oct 06, 2016 13:07 JOSE DAVID RENDON Oct 06, 2016 13:15 CHRIS ELIAS Oct 06, 2016 15:31
[2016-10-06 13:28] LABS: BASOPHILS % (AUTO) 0.2 % (0-3); EOSINOPHILS % (AUTO) 0.4 % (0-5); MONOCYTES % (AUTO) 8.1 % (4-12); Mean Corpuscular Hemoglobin 28.7 pg (27.0-35.0); Mean Corpuscular Volume 82.2 fL (81-100); NEUTROPHILS % (AUTO) 76.1 % (40-74); Platelet Count 290 bil/L (150-400)
[2016-10-06 16:07] LABS: APPEARANCE,URINE CLOUDY (CLEAR,HAZY); COLOR,URINE DARK YELLOW (YELLOW); OCCULT BLOOD,URINE LARGE (NEGATIVE); PH,URINE 5.5 (5.0-8.0); UROBILINOGEN,URINE NORMAL (NORMAL)
[2016-10-06] MEDS ORDERED: OLAN20TA3 PO (18:01)
[2016-10-06 18:32] VITALS: BP 148/103; PULSE 58; RESP 16; O2SAT 98
== END 2016-10-06 18:33 | disposition home or self-care (01) ==
LOC: SED 12:01
DX: F41.9 Anxiety disorder, unspecified (principal); N39.0 Urinary tract infection, site not specified; E87.6 Hypokalemia; J45.909 Unspecified asthma, uncomplicated; I10 Essential (primary) hypertension; K21.9 Gastro-esophageal reflux disease without esophagitis; F17.200 Nicotine dependence, unspecified, uncomplicated; F15.21 Other stimulant dependence, in remission; F31.9 Bipolar disorder, unspecified; Z79.51 Long term (current) use of inhaled steroids; Z88.6 Allergy status to analgesic agent